=== PATIENT | female | born 1985 | race Caucasian/White ===

== ENCOUNTER 2023-01-20 21:53 | Emergency (ER) | payer OTHER, SELFPAY ==
--- NOTE | ~2023-01-20 | CT_ITS ---
Non-contrast Head CT History: Headache Technique: Axial non-contrast imaging of the brain was performed. Dose reduction technique was used on this scan by utilizing automated exposure control and iterative reconstruction technique. The dose -length product (DLP) was 605.33 mGy-cm. Findings: There is no evidence of intracranial hemorrhage, mass lesion, or acute infarct. Brain par enchyma appears normal. The ventricles and subarachnoid spaces are normal in size. The calvarium ap pears normal. The visualized paranasal sinuses and mastoid air cells are clear. Impression: No significant abnormality seen. Reviewed, dictated and finalized at location . Impression: No significant abnormality seen.
[2023-01-20 22:03] VITALS: BP 165/96; PULSE 88; RESP 16; TEMP 36.9; O2SAT 100
[2023-01-20 22:29] VITALS: O2SAT 100
[2023-01-20 22:30] VITALS: O2SAT 100
[2023-01-20 22:35] VITALS: BP 128/75; O2SAT 100
--- NOTE | 2023-01-20 23:12 | PC.NURSE ---
Patient report given to BRANDON Lorenzana. All questions answered and care of patient transferred.
[2023-01-20] MEDS: SODIUM CHLORIDE 0.9% IV 1,000 ML 999 ML IV CONT (23:30)
[2023-01-20] MEDS: METOCLOPRAMIDE HCL INJ 10 MG/2 ML VIAL IV PUSH (23:30)
[2023-01-20] MEDS: KETOROLAC 15 MG/ML VIAL (*BKC) IV PUSH (23:31)
[2023-01-20] MEDS: diphenhydrAMINE HCl INJ 50 MG/ML VIAL 25 MG IV PUSH (23:31)
--- NOTE | 2023-01-20 23:33 | ED.HA ---
HPI - Headache General Chief Complaint: Headache Stated Complaint: migraine Time Seen by Provider: 01/20/23 22:27 Source: patient Mode of arrival: ambulatory Limitations: no limitations History of Present Illness HPI Narrative: Patient is a 37-year-old female who presents to the ED with report of a headache. Patient reports her headache has been fairly constant for the last 1.5 weeks. She has been taking Tylenol, ibuprofen, Excedrin without relief. Pain is mostly R periorbital and extends around to her posterior head. Patient has had HAs before, but states they have never lasted this long. Today, she reported having twitching of her R eye with blurry vision when her eye is twitching. She also reported having N/V today, along with photophobia/phonophobia. Denies any focal weakness or numbness, abdominal pain, dizziness, lightheadedness, fevers. Related Data Allergies Allergy/AdvReac Type Severity Reaction Status Date / Time No Known Allergies Allergy Verified 01/20/23 23:47 Review of Systems Review of Systems: CONSTITUTIONAL: Denies fever, chills, or sweats. EYES: See HPI. CARDIOVASCULAR: Denies chest pain. RESPIRATORY: Denies dyspnea. GASTROINTESTINAL: See HPI. MUSCULOSKELETAL: Denies back pain, joint pain, or myalgia. NEUROLOGIC: See HPI. All systems reviewed & are unremarkable except as noted in HPI and below Exam Narrative: GENERAL: Well appearing, obese with BMI of 33.3, non-toxic, in no acute distress. HEAD: Normocephalic, atraumatic. EYES: PERRL/EOMI, conjunctivae clear bilaterally. No nystagmus. NECK: Supple. No adenopathy, no masses. No meningeal signs. RESPIRATORY: Airway patent, respirations nonlabored. Clear to auscultation bilaterally, no rales, rhonchi, wheezing. CARDIOVASCULAR: Regular rate and rhythm without murmurs, rubs, or gallops. Peripheral pulses 2+ and equal bilaterally. MUSCULOSKELETAL: Moves all extremities. Strength/ROM intact without gross deformities. SKIN: Warm, dry, normal color. No rashes. NEURO: A&O X3. Speech clear. Follows commands. CN II-XII intact. Sensation grossly intact. Steady gait. No ataxic movements. Strength 5/5 in upper and lower extremities bilaterally. No pronator drift. Equal microarray specialist strength bilaterally. PSYCHIATRIC: Appropriate mood and affect. Normal interaction. Course Vital Signs Vital signs: Vital Signs Temperature 98.5 F 01/20/23 22:03 Pulse Rate 88 01/20/23 22:03 Respiratory Rate 16 01/20/23 22:03 Blood Pressure 165/96 H 01/20/23 22:03 Pulse Oximetry 100 01/20/23 22:03 Oxygen Delivery Room Air 01/20/23 22:03 Temperature 98.5 F 01/20/23 22:03 Pulse Rate 88 01/20/23 22:03 Respiratory Rate 16 01/20/23 22:03 Blood Pressure 128/75 01/20/23 22:35 Pulse Oximetry 100 01/20/23 22:35 Oxygen Delivery Room Air 01/20/23 22:03 MDM - Headache MDM Narrative Medical decision making narrative: Patient's headache was not sudden in onset or maximal in severity. There are no focal neurological deficits on exam. CT brain negative. No evidence of SAH. There is no history of fever and neck is supple on evaluation without meningeal signs. Meningitis is felt to be unlikely. No traumatic history or signs of trauma on evaluation. Patient feeling much better after migraine cocktail. LARRY nearly resolved. Patient's headache is felt to be benign cephalgia and reasonable for further outpatient management. Advised patient to follow with PCP for further evaluation. Given reasons to return. Patient feels comfortable with d/c home. D/C in stable condition. Medical Records Attestation: I reviewed the patient's medical records. Imaging Data Attestation: I personally reviewed and interpreted this imaging study as follows: Radiologist's impression: STAT RAD CT brain: Impression: No hemorrhage, hydrocephalus, mass effect, or herniation. Bones unremarkable. Discharge Plan Discharge Clinical Impression: Migraine headache Qualifiers: Migraine type: unspecif
[2023-01-20] MEDS: ACETAMINOPHEN 325 MG TABLET 650 MG (23:55)
[2023-01-21 01:51] VITALS: BP 123/76; PULSE 74; RESP 16; O2SAT 99
== END 2023-01-21 01:53 | disposition home or self-care (01) ==
PROVIDERS: Emergency Provider Physician Assistant
DX: G43.909 Migraine, unspecified, not intractable, without status migrainosus (principal)
CPT/HCPCS: 70450; 96361; 96374; 96375; 99284; A9270; J1100; J1200; J1885; J2765; J7030